=== PATIENT | female | born 1985 | race Caucasian/White ===

== ENCOUNTER 2022-02-13 11:09 | Emergency (ER) | payer BC ==
[~2022-02-13] VITALS: Ht 162.6 cm; Wt 77.6 kg
[2022-02-13 11:44] VITALS: BP 129/88
[2022-02-13] MEDS ORDERED: IBUP800T27 PO (11:50)
== END 2022-02-13 12:03 | disposition home or self-care (01) ==
LOC: ER 11:09
DX: S93.602A Unspecified sprain of left foot, initial encounter (principal); F17.210 Nicotine dependence, cigarettes, uncomplicated; Z88.6 Allergy status to analgesic agent; W19.XXXA Unspecified fall, initial encounter; Y93.89 Activity, other specified; Y92.89 Other specified places as the place of occurrence of the external cause; Y99.8 Other external cause status
CPT/HCPCS: 73630